=== PATIENT | male | born 1985 | race African-American/Black ===

== ENCOUNTER 2018-01-02 05:32 | Day surgery (SDC) | payer OTHER ==
[2018-01-02] MEDS ORDERED: Phenylephrine 2.5% Ophth Soln 5 ML BOT ONE (05:54)
[2018-01-02] MEDS ORDERED: Cyclopentolate 1% Opth Drop 2 ML BOT ONE (05:54)
[2018-01-02] MEDS ORDERED: Fentanyl 100 MCG/2 ML VIAL ONE ×2 (06:10→07:43)
[2018-01-02] MEDS ORDERED: Ondansetron HCl/PF 4 MG/2 ML Vial ONE (06:10)
[2018-01-02] MEDS ORDERED: PROPOFOL 20 ML ONE (06:10)
[2018-01-02] MEDS ORDERED: Midazolam HCl 2 mg/2 ml Vial ONE (06:10)
[2018-01-02] MEDS ORDERED: Lidocaine 2% 10 ML INJ ONE (06:10)
[2018-01-02] MEDS ORDERED: Fluorouracil 100 MG, Enoxaparin Sodium 25 MG, EPINEPHrine 0.3 MG in Ophthalmic Irrigati... IVPB SCH (06:20)
--- NOTE | 2018-01-02 09:44 | OP ---
DATE OF PROCEDURE: 01/02/2018 PREOPERATIVE DIAGNOSIS: Retinal detachment, left eye. POSTOPERATIVE DIAGNOSIS: Retinal detachment, left eye. PROCEDURE: Pars plana vitrectomy, complex retinal detachment repair, left eye. SURGEON: Dr. Isaiah Hollis ANESTHESIA: General endotracheal anesthesia. COMPLICATIONS: None. PROCEDURE IN DETAIL: The patient was identified in the preoperative holding area. Appropriate infor med consent for the planned surgical procedure on the left eye had been obtained. The patient was tr ansported to the operative suite. Appropriate cardiopulmonary monitoring was established. General e ndotracheal anesthesia was initiated. Local anesthesia obtained using retrobulbar block. Eye was pr epped and draped in the usual sterile manner for ophthalmic surgery on the left eye. Lid speculum wa s placed in the left eye. The 25-gauge trocars were placed in conjunctiva and sclera supratemporally , inferotemporally, and supranasally. Infusion line was placed inferotemporally. Light pipe and vit reous cutter were inserted into the eye. Core vitrectomy was performed. Kenalog was inserted into t he eye to aid vitreous removal. An additional sclerotomy was created inferior nasally to facilitate removal of the inferior vitreous. Vitreous was trimmed back carefully 360 degrees with special atten tion to the inferior elevated hole. Posterior drain retinotomy was created inferior to the nerve. S ignificant amount of very thick subretinal fluid was drained. Laser was placed 360 degrees around th e buckle with special attention inferiorly. Silicone oil was infused into the eye. Trocar sites wer e sutured closed with 7-0 Vicryl suture. Retrobulbar Kenalog and subconjunctival Ancef were placed. Atropine and antibiotic ointment were placed, and the eye was patched and shielded. The patient was taken to the postoperative recovery unit in good condition having suffered no immediate perioperativ e complications. The patient was advised to position right or left side down. Follow up in the morning with Dr. Hollis.
== END 2018-01-02 10:19 | disposition home or self-care (01) ==
LOC: SDC 05:32
PROVIDERS: ATTEND Ophthalmology Retina Specialist
PROC: 08T43ZZ Resection of Right Vitreous, Percutaneous Approach (ICD-10-PCS; principal; 2018-01-02)
PROC: 08QE3ZZ Repair Right Retina, Percutaneous Approach (ICD-10-PCS; principal; 2018-01-02)
DX: H33.22 Serous retinal detachment, left eye (principal); Z79.899 Other long term (current) drug therapy; Z88.0 Allergy status to penicillin
CPT/HCPCS: C1814; J0171; J1650; J2250; J2405; J2704; J3010; J9190

== ENCOUNTER 2018-05-15 06:17 | Day surgery (SDC) | payer OTHER ==
[~2018-05-15 06:17] MED LIST: EPINEPHrine 0.3 MG in Ophthalmic Irrigation Solution 500 ML FS SCH
[2018-05-15] MEDS ORDERED: Cyclopentolate 1% Opth Drop 2 ML BOT ONE (06:25)
[2018-05-15] MEDS ORDERED: Phenylephrine 2.5% Ophth Soln 5 ML BOT ONE (06:25)
[2018-05-15] MEDS ORDERED: PROPOFOL 20 ML ONE (06:26)
[2018-05-15] MEDS ORDERED: Midazolam HCl 2 mg/2 ml Vial ONE (06:26)
[2018-05-15] MEDS ORDERED: Fentanyl 100 MCG/2 ML VIAL ONE (06:26)
[2018-05-15] MEDS ORDERED: Lidocaine 1% (PF) 30 ML VIAL ONE (06:55)
[2018-05-15] MEDS ORDERED: CEFAZOLIN 1 GM VIAL ONE (11:36)
[2018-05-15] MEDS ORDERED: Lidocaine 1% PF 5 ML VIAL ONE ×2 (11:36)
[2018-05-15] MEDS ORDERED: Triamcinolone 40 MG/ML VIAL ONE (11:36)
[2018-05-15] MEDS ORDERED: Lidocaine 4% PF 5 ML AMP ONE (11:36)
[2018-05-15] MEDS ORDERED: Bupivacaine 0.75% 10 ML AMP ONE (11:36)
[2018-05-15] MEDS ORDERED: Maxitrol 0.1% Opth Oint 3.5 GM TUBE ONE (11:36)
[2018-05-15] MEDS ORDERED: PROPOFOL 200 MG/20 ML VIAL ONE (11:36)
--- NOTE | 2018-05-16 13:48 | OP ---
DATE OF PROCEDURE: 05/15/2018 PREOPERATIVE DIAGNOSIS: Vitreous opacification, left eye. POSTOPERATIVE DIAGNOSIS: Vitreous opacification, left eye. PROCEDURE PERFORMED: Pars plana vitrectomy membrane peel, left eye. ANESTHESIA: Local monitored anesthesia care. PROCEDURE IN DETAIL: The patient was identified in the preoperative holding area. Appropriate informed consent for the planned procedure on the left eye had been obtained. The patient was transported to the operating suite where appropriate cardiopulmonary monitoring was established. Local anesthesia obtained using retrobulbar and modified Van Lint lid block using 50/50 mixture of 4% lidocaine and 0.75% bupivacaine. The patient was prepped and draped in the usual sterile manner for ophthalmic surgery on the left eye. Lid speculum was placed in the left eye. Trocars were placed inferotemporally, superonasally. Superotemporal sclerotomies were created using a 20-gauge MVR blade Silicone oil was removed. Vitreous membranes were identified and peeled. Sclerotomies were closed with 7-0 Vicryl sutures. Conjunctiva was closed with 6-0 plain gut suture. Retrobulbar Kenalog and subconjunctival Ancef were placed, and the eye was patched and shielded. The patient was taken to the postoperative recovery unit in good condition having suffered no immediate perioperative complications. Job ID: [id number] [facility]
== END 2018-05-15 08:25 | disposition home or self-care (01) ==
LOC: SDC 06:17
PROVIDERS: ATTEND Ophthalmology Retina Specialist
DX: H43.312 Vitreous membranes and strands, left eye (principal); Z88.0 Allergy status to penicillin; Z79.899 Other long term (current) drug therapy
CPT/HCPCS: J0171; J0690; J2001; J2250; J2704; J3010; J3301; J3490